=== PATIENT | male | born 1950 | race Caucasian/White ===

== ENCOUNTER → 2016-12-23 | Outpatient (CLI) | payer MEDICARE, OTHER ==
[~2016-12-23] MED LIST: ALDACTONE25 MG PO; ASPIRIN325 MG PO; BENICAR 20 MG20 MG PO; CENTRUM SILVER1 EAC5 PO; COREG25 MG PO; LASIX40 MG PO; LIPITOR10 MG PO; TYLENOL EXTRA500 MG PO; TYLENOL/COD1 TAB PO
== END | disposition disaster alternative care site (69) ==
LOC: GRAD 12:17
DX: R31.29 Other microscopic hematuria (principal); N20.0 Calculus of kidney; K80.20 Calculus of gallbladder without cholecystitis without obstruction; N28.1 Cyst of kidney, acquired

== ENCOUNTER → 2017-01-13 | Day surgery (SDC) | payer MEDICARE, OTHER ==
[~2017-01-13] VITALS: Ht 180.3 cm; Wt 160.8 kg
--- NOTE | ~2017-01-13 | OR ---
PATIENT'S NAME: ZACARIAS LOPES [facility] AGE: 66 Y [address] 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 POSTOPERATIVE DIAGNOSIS: Left nephrolithiasis. PROCEDURE PERFORMED: Cystoscopy, left stent placement, left extracorporeal shock-wave lithotripsy. ANESTHESIA: General. COMPLICATIONS: None. INDICATION FOR PROCEDURE: The patient is a 66-year-old male, initially evaluated for microscopic hematuria. Abdominopelvic CT scan reveals a 17 x 6 mm left renal pelvic stone without obstruction. DETAILS OF PROCEDURE: After informed consent obtained, the patient was taken to the operating room. A general anesthetic was applied and he was placed in a dorsal lithotomy position. The groin area was prepped and draped in normal sterile fashion. Cystoscope was introduced into the urethra and bladder. The patient was noted to have prostatic enlargement and elevated bladder neck. Next, a guidewire was passed in the left ureteral orifice up into the renal pelvis. Following this, a 6-Paraguayan multi-length ureteral stent was passed over the guidewire up into the renal pelvis. Radiographic imaging shows good position of the stent. The patient was then transferred to the lithotripsy table in the supine position. His left renal pelvic stone was then targeted with fluoroscopy. He received shocks starting at 14 kilovolts and gradually increased to 24 kilovolts. The patient received a total of 3000 shocks and the stone appeared to fragment with treatment. The patient tolerated his procedure well and was transferred to recovery room in good condition. ANGIE TERESA MD PATIENT'S NAME: ZACARIAS LOPES [facility] AGE: 66 Y [address] ROOM: [place] [address] LOCATION: [facility] – [place] ADMIT DATE: 01/13/2017 OR/Procedure Report DISCHARGE DATE: FAMILY PHYSICIAN: Eric Osuna MD ATTENDING PHYSICIAN: Angie Teresa/prakash /[id number] CC: Eric Osuna MD d: 01/14/17 0042 t: 02/03/17 0902, OPERATIVE SUMMARY
[2017-01-13 12:42] LABS: BASOPHIL % 0.5 %; EOSINOPHIL # 0.3 K/uL (0.0-0.5); EOSINOPHIL % 3.2 %; HEMATOCRIT 44.8 % (37.0-53.0); HEMOGLOBIN 15.2 g/dL (11.0-16.0); IMMATURE GRANULOCYTE % 0.4 %; MCHC 33.9 gm/dL (32.0-36.5); MCV 91.4 fl (83.0-98.0); MONOCYTE # 0.7 K/uL (0.0-1.0); MONOCYTE % 8.1 %; MPV 9.7 fl (9.4-12.4); NEUTROPHIL # (ANC) 5.4 K/uL (1.4-9.0); NEUTROPHIL % 63.8 %; NRBC % 0 /100WBC (0-0.00); PLATELET COUNT 290 K/uL (150-450); RDW-CV 13.2 % (11.9-14.6); WBC 8.4 K/uL (4.0-11.0)
[2017-01-13 12:58] LABS: ALBUMIN 3.6 gm/dL (3.5-5.0); ALK PHOS 68 IU/L (33-138); ALT 30 IU/L (12-78); ANION GAP 9.4 (10.0-19.0); AST 18 IU/L (10-40); BLOOD UREA NITROGEN 17 mg/dL (6-24); CALCIUM 8.6 mg/dL (8.5-10.5); CHLORIDE 109 mMol/L (96-110); CO2 28 mMol/L (22-32); CREATININE 0.9 mg/dL (0.6-1.3); ESTIMATED GFR (MDRD EQUATION) > 60; POTASSIUM 4.4 mMol/L (3.7-5.1); SODIUM 142 mMol/L (135-145); TOTAL BILIRUBIN 0.6 mg/dL (0.0-1.5); TOTAL PROTEIN 7.7 g/dL (6.0-8.4)
== END ==
LOC: GPOC 01-07 14:00 → GSDC 11:56 → GPOC 14:00 → GSDC 14:00
PROVIDERS: Urology
PROC: 0TF4XZZ Fragmentation in Left Kidney Pelvis, External Approach (ICD-10-PCS; principal; 2017-01-13)
PROC: 0T778DZ Dilation of Left Ureter with Intraluminal Device, Via Natural or Artificial Opening Endoscopic (ICD-10-PCS; 2017-01-13)
DX: N20.0 Calculus of kidney (principal); N40.0 Benign prostatic hyperplasia without lower urinary tract symptoms; M19.90 Unspecified osteoarthritis, unspecified site; E78.00 Pure hypercholesterolemia, unspecified; I25.2 Old myocardial infarction; I25.10 Atherosclerotic heart disease of native coronary artery without angina pectoris; I11.0 Hypertensive heart disease with heart failure; I50.30 Unspecified diastolic (congestive) heart failure; E78.5 Hyperlipidemia, unspecified; E66.01 Morbid (severe) obesity due to excess calories; I25.9 Chronic ischemic heart disease, unspecified; I48.91 Unspecified atrial fibrillation; E11.9 Type 2 diabetes mellitus without complications; Z85.828 Personal history of other malignant neoplasm of skin; Z95.1 Presence of aortocoronary bypass graft; Z79.82 Long term (current) use of aspirin; Z79.899 Other long term (current) drug therapy; Z98.890 Other specified postprocedural states; Z88.1 Allergy status to other antibiotic agents
CPT/HCPCS: C1769; J1956; J2001; J2405; J7120

== ENCOUNTER → 2017-02-06 | Outpatient (CLI) | payer MEDICARE, OTHER | END | disposition disaster alternative care site (69) | LOC: GRAD 09:34 | DX: N20.0 Calculus of kidney (principal); I87.8 Other specified disorders of veins ==

== ENCOUNTER → 2017-02-10 | Day surgery (SDC) | payer MEDICARE, OTHER ==
[~2017-02-10] VITALS: Ht 182.9 cm; Wt 157.8 kg
--- NOTE | ~2017-02-10 | OR ---
PATIENT'S NAME: ZACARIAS LOPES [facility] AGE: 66 Y [address] 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 POSTOPERATIVE DIAGNOSIS: Left nephrolithiasis. PROCEDURE PERFORMED: Left extracorporeal shock wave lithotripsy, cystoscopy with stent removal. ANESTHESIA: MAC. COMPLICATIONS: None. INDICATION FOR PROCEDURE: The patient is a 66-year-old male who is status post cystoscopy with left stent placement, left ESWL. The patient now presents for treatment of his stone. DETAILS OF PROCEDURE: After informed consent was obtained, the patient was taken to the operating room. A MAC anesthetic was applied, and he was placed in a supine position on the lithotripsy table. Fluoroscopy was then used to target his stone, which was then treated starting at 14 kilovolts and gradually increased to 24 kilovolts. The patient received a total of 1400 shocks and the stone appeared to fragment well with treatment. The groin area was prepped and draped in normal sterile fashion. Cystoscope was introduced into the urethra and bladder without difficulty. The stent was identified in the left ureteral orifice and engaged with a grasping device and removed. The patient tolerated his procedure well and transferred to recovery room in good condition. ANGIE TERESA MD AMRIT/modl PATIENT'S NAME: ZACARIAS LOPES [facility] AGE: 66 Y [address] ROOM: [place] [address] LOCATION: [facility] – [place] ADMIT DATE: 02/10/2017 OR/Procedure Report DISCHARGE DATE: FAMILY PHYSICIAN: Eric Osuna MD ATTENDING PHYSICIAN: Angie Teresa /[id number] CC: Eric Osuna MD d: 02/10/171916 t: 02/25/17 1157, OPERATIVE SUMMARY
== END | disposition disaster alternative care site (69) ==
LOC: GPOC 02-09 09:00 → GSDC 12:00
PROC: 0TF4XZZ Fragmentation in Left Kidney Pelvis, External Approach (ICD-10-PCS; principal; 2017-02-10)
PROC: 0TP98DZ Removal of Intraluminal Device from Ureter, Via Natural or Artificial Opening Endoscopic (ICD-10-PCS; 2017-02-10)
DX: N20.0 Calculus of kidney (principal); I10 Essential (primary) hypertension; E11.9 Type 2 diabetes mellitus without complications; I25.10 Atherosclerotic heart disease of native coronary artery without angina pectoris; Z85.828 Personal history of other malignant neoplasm of skin; Z88.1 Allergy status to other antibiotic agents; Z95.1 Presence of aortocoronary bypass graft; Z98.890 Other specified postprocedural states
CPT/HCPCS: J1956; J2001; J7030

== ENCOUNTER → 2017-03-06 | Outpatient (CLI) | payer MEDICARE, OTHER | END | disposition disaster alternative care site (69) | LOC: GRAD 10:00 | DX: N20.0 Calculus of kidney (principal) ==